=== PATIENT | male | born 1965 | race Caucasian/White ===

== ENCOUNTER → 2022-03-26 11:13 | Outpatient (CLI) | payer OTHER, SELFPAY ==
--- NOTE | 2022-03-26 11:15 | DI.RAD.S_ITS ---
PROCEDURE: XR CHEST 2V INDICATIONS: c/f pneumonia RLL, crackles and wheezing TECHNIQUE: 2 views of the chest were acquired. COMPARISON: None. FINDINGS: Surgical changes and devices: None. Lungs and pleura: Lungs are clear. No pleural effusions or pneumothorax. Mediastinum: Mediastinal contours are normal. Heart size is normal. Bones and chest wall: No suspicious bony abnormalities. Soft tissues appear unremarkable. IMPRESSION: Chest without acute cardiopulmonary abnormalities. No focal airspace disease/consolidation identified. Dictated by: Kelby Sutton M.D. on 03/26/2022 at 11:27 Approved by: Kelby Sutton M.D. on 03/26/2022 at 11:28
== END ==
PROVIDERS: Referring Provider Nurse Practitioner Critical Care Medicine; Visit Provider Nurse Practitioner Critical Care Medicine
DX: J18.9 Pneumonia, unspecified organism (principal)
CPT/HCPCS: 71046